=== PATIENT | male | born 1955 | race Caucasian/White ===

== ENCOUNTER → 2018-01-20 | Outpatient (CLI) | payer BC ==
[2015-12-02 08:04] VITALS: BP 107/65
[~2018-01-20] MED LIST: MOME13HF IH; OMEP20TA63 PO; PRAV20TA2 PO
--- NOTE | 2018-01-20 09:41 | CARD ---
MR#: [id number] Date of Study: 01/20/2018 Ordering Physician: ALEJANDRA CAMARILLO, Referring Physician: ALEJANDRA CAMARILLO Tech: Sarah Beth Tierney RDCS APPROVED REPORT EXAM: Two-dimensional and M-mode echocardiogram with Doppler and color Doppler. Other Information Quality : Fair INDICATION Atrial Fibrillation Chest Pain RISK FACTORS Obesity 2D DIMENSIONS RVDd3.3 (2.9-3.5cm)Left Atrium(2D)3.7 (1.6-4.0cm) IVSd1.2 (0.7-1.1cm)Aortic Root(2D)3.7 (2.0-3.7cm) LVDd5.6 (3.9-5.9cm)LVOT Diameter2.2 (1.8-2.4cm) PWd1.2 (0.7-1.1cm)LVDs4.5 (2.5-4.0cm) FS (%) 27.0 %SV61.9 ml LVEF(%)55.0 (>50%) Aortic Valve AoV Peak Tomas.146.4cm/sAoV VTI25.5cm AO Peak GR.8.6mmHgLVOT Peak Tomas.108.2cm/s AO Mean GR.4mmHgAVA (VMAX)2.87cm2 MEHUL (VTI)3.10cm2 Mitral Valve MV E Sqmhvwjr60.6cm/sMV DECEL VHVL105jj MV A Rjkwmhhy89.5cm/sE/A Ratio0.9 Tricuspid Valve TR P. Nidlbude075ja/sRAP TLTMAVGC2rkDh TR Peak Gr.64lxDzFSBQ25qkBc Pulmonary Vein S1 Qjvsxeqv38.9cm/sD2 Bcpuwtjf43.6cm/s LEFT VENTRICLE The left ventricle is normal size. There is mild concentric left ventricular hypertrophy. The left ve ntricular systolic function is normal. The Ejection Fraction is 55-60%. There is normal LV segmental wall motion. Transmitral Doppler flow pattern is Grade I-abnormal relaxation pattern. RIGHT VENTRICLE The right ventricle is normal size. The right ventricular systolic function is normal. ATRIA The left atrium size is normal. The right atrium size is normal. The interatrial septum is intact wit h no evidence for an atrial septal defect or patent foramen ovale as noted on 2-D or Doppler imaging. AORTIC VALVE The aortic valve is not well visualized. Doppler and Color Flow revealed no significant aortic regurg itation. There is no significant aortic valvular stenosis. MITRAL VALVE The mitral valve is normal in structure and function. There is no evidence of mitral valve prolapse. There is no mitral valve stenosis. Doppler and Color Flow revealed no mitral valve regurgitation note d. TRICUSPID VALVE The tricuspid valve is normal in structure and function. Doppler and Color Flow revealed trace tricus pid regurgitation. There is mild pulmonary hypertension. The PA pressure was estimated at 35 mmHg. Th ere is no tricuspid valve stenosis. PULMONIC VALVE The pulmonic valve is not well visualized. Doppler and Color Flow revealed no pulmonic valvular regur gitation. There is no pulmonic valvular stenosis. GREAT VESSELS The aortic root is normal in size. The ascending aorta is normal in size. The IVC is normal in size a nd collapses >50% with inspiration. PERICARDIAL EFFUSION There is no evidence of significant pericardial effusion. Critical Notification Critical Value: No <Conclusion> The left ventricular systolic function is normal. The Ejection Fraction is 55-60%. There is normal LV segmental wall motion. Trace tricuspid regurgitation. There is mild pulmonary hypertension. The PA pressure was estimated at 35 mmHg. There is no evidence of significant pericardial effusion. Signed by : Alejandra Camarillo, Electronically Approved : 01/20/2018 09:40:43
== END | disposition home or self-care (01) ==
LOC: ECHO 07:12
PROVIDERS: ATTEND Internal Medicine Cardiovascular Disease
DX: I27.20 Pulmonary hypertension, unspecified (principal); E78.00 Pure hypercholesterolemia, unspecified; K21.9 Gastro-esophageal reflux disease without esophagitis; E66.9 Obesity, unspecified
CPT/HCPCS: 93306

== ENCOUNTER 2018-01-31 10:11 | Outpatient (CLI) | payer BC ==
[~2018-01-31] VITALS: Ht 182.9 cm; Wt 151.5 kg
[2018-01-31] VITALS (10 sets, daily range): BP systolic 114–136; BP diastolic 57–76
[2018-01-31 10:34] LABS: HEMATOCRIT 42.2 % (39.0-53.0); HEMOGLOBIN 14.7 g/dL (13.0-17.5); RED BLOOD COUNT 4.78 x10^6/uL (4.30-5.70); RED CELL DISTRIBUTION WIDTH 13.5 % (11.5-14.5)
[2018-01-31 10:44] LABS: PROTHROMBIN TIME PATIENT 12.2 SEC (11.7-14.0)
[2018-01-31] MEDS ORDERED: ASPI-612 PO (11:05)
[2018-01-31] MEDS ORDERED: ATOR40TA59 PO (11:05)
[2018-01-31] MEDS ORDERED: DILT120C2 PO (11:05)
[2018-01-31] MEDS ORDERED: APIX5TAB PO (11:05)
[2018-01-31 11:13] LABS: CALCIUM 9.4 mg/dL (8.5-10.1); CREATININE 1.1 mg/dL (0.7-1.3); GFR 68.1; POTASSIUM 4.2 mmol/L (3.5-5.1)
[2018-01-31] MEDS ORDERED: IOHEXOL 300 MG/ML 100ML VIAL. ONE (11:33)
[2018-01-31] MEDS ORDERED: LIDOCAINE 1% PF 30 ML VIAL. ONE (11:33)
[2018-01-31] MEDS ORDERED: NITROGLYCERIN 200 MCG/2 ML SYRINGE FOR CATH/VASC LAB. ONE (12:13)
[2018-01-31] MEDS ORDERED: MIDAZOLAM HCL/PF 2 MG/2 ML VIAL. ONE (12:13)
[2018-01-31] MEDS ORDERED: HEPARIN for IV BOLUS 10,000 UNIT/10 ML VIAL. ONE (12:13)
[2018-01-31] MEDS ORDERED: VERAPAMIL 5 MG/2 ML VIAL. ONE (12:13)
[2018-01-31] MEDS ORDERED: fentaNYL PF VIAL 100 MCG/2 ML VIAL ONE (12:13)
[2018-01-31] MEDS ORDERED: LIDOCAINE 1% PF 30 ML VIAL. INJ ONE (12:30)
[2018-01-31] MEDS ORDERED: VERAPAMIL 5 MG/2 ML VIAL. IART ONE (12:30)
[2018-01-31] MEDS ORDERED: fentaNYL PF VIAL 100 MCG/2 ML VIAL IV ONE (12:30)
[2018-01-31] MEDS ORDERED: HEPARIN for IV BOLUS 10,000 UNIT/10 ML VIAL. IART ONE (12:30)
[2018-01-31] MEDS ORDERED: MIDAZOLAM HCL/PF 2 MG/2 ML VIAL. IV ONE (12:30)
[2018-01-31] MEDS ORDERED: IOHEXOL 300 MG/ML 100ML VIAL. IART ONE (12:30)
[2018-01-31] MEDS ORDERED: NITROGLYCERIN 200 MCG/2 ML SYRINGE FOR CATH/VASC LAB. IART ONE (12:30)
[2018-01-31] MEDS ORDERED: IV 1/2 NORMAL SALINE 1,000 ML IV SCH (12:37)
--- NOTE | 2018-01-31 12:37 | PDOC ---
MODERATE SEDATION ASSESSMENT RISKS/ALTERNATIVES Risks/Alternatives Risks and alternatives of this type of sedation and procedure discussed with: RISK/ALTERNATIVES: Patient H & P ON CHART H & P H & P on chart and reviewed for co-morbid conditions and appropriate labs. H&P ON CHART: Yes STATUS PREG STATUS ASSESSED: N/A MEDS/ALLERGIES REVIEWED Meds/Allergies Reviewed Medications and Allergies including time and route of recently administered narcotics and sedatives. MEDS/ALLERGIES REVIEWED: Yes ASA RATING ASA RATING: II AIRWAY ASSESSMENT Airway Assessment Airway patency, oral function limitations, presence of caps, crowns, dentures, partials, and ability to extend neck assessed. AIRWAY ASSESSMENT: Yes MALLAMPATI SCORE MALLAMPATI SCORE: II PRE-SEDATION ASSESSMENT PRE-SEDATION ASSESSMENT: Yes ALEJANDRA CAMARILLO MD Jan 31, 2018 12:37
[2018-01-31] MEDS ORDERED: CONTRAST GIVEN. MC PRN (12:45)
[2018-01-31] MEDS ORDERED: NITROGLYCERIN SUBLINGUAL 0.4 MG BOTTLE OF 25. SL PRN (12:45)
--- NOTE | 2018-01-31 12:54 | CARD ---
MR#: [id number] Date of Study: 01/31/2018 Ordering Physician: ALEJANDRA GARRETT Referring Physician: ALEJANDRA GARRETT Tech: RT Khloe (R) APPROVED REPORT Technologist: RT Khloe (R) Nurse: Monique Cunha R.N. Procedure(s) performed: Left heart catheterization, selective coronary angiography and left ventricul ography via right transradial approach Moderate Sedation: 16 minutes INDICATION The indication(s) include : Chest pain, dyspnea on exertion and positive stress test. PROCEDURE NARRATIVE After explaining the risks, benefits and alternative options, informed consent was obtained from brandi ent. Patient was brought to the cardiac [facility] and right wrist was prepped and draped in the usual fashion after confirming a positive modified Ezra's test. Arterial access was obtained in the righ t radial artery and a 6 Beninese sheath was inserted. 6 Beninese Angel catheter was used to perform elida ective angiography of the left and right coronary arteries. 6 Beninese pigtail catheter was used to pe rform left ventriculography. Patient tolerated the procedure well. Hemostasis was achieved using TR band. There were no immediate complications. The following findings were noted. FINDINGS 1. Hemodynamics: Left ventricular end-diastolic pressure of 6 mmHg. No pullback gradient across the aortic valve. 2. Left ventriculography: Normal left ventricle systolic function with ejection fraction estimated at 60%. No significant mitral regurgitation seen. 3. Coronary angiography: a. The left main coronary artery arose from the left sinus of Valsalva, gave rise to the left anteri or descending and left circumflex arteries and did not show any significant stenosis. b. The left anterior descending artery did not show any significant stenosis. c. The left circumflex artery did not show any significant stenosis. d. The right coronary artery was a large and dominant vessel arising from the right sinus of Valsalv a that did not show any significant stenosis. Conclusion 1. No significant coronary artery disease 2. Normal left ventricle systolic function with ejection fraction estimated at 60%. Signed by : Alejandra Garrett, Electronically Approved : 01/31/2018 12:53:52
== END 2018-01-31 15:33 | disposition home or self-care (01) ==
LOC: CCL 10:11
PROVIDERS: ATTEND Internal Medicine Cardiovascular Disease
DX: R94.39 Abnormal result of other cardiovascular function study (principal); Z79.899 Other long term (current) drug therapy; Z79.01 Long term (current) use of anticoagulants
CPT/HCPCS: 36415; 80048; 85027; 85610; 93458; 99152; C1769; C1892; J1644; J2250; J3010; J3490; Q9967; 99153

== ENCOUNTER → 2020-10-25 | Outpatient (CLI) | payer BC ==
[2018-01-31 15:15] VITALS: BP 128/66
[~2020-10-25] MED LIST changes: +APIX5TAB PO; +ASPI-886 PO; +ATOR40TA59 PO; +DILT120C2 PO
--- NOTE | 2020-10-25 12:09 | CARD ---
MR#: [id number] Date of Study: 10/25/2020 Ordering Physician: ALEJANDRA GARRETT, Referring Physician: ALEJANDRA GARRETT, Tech: APPROVED REPORT PROCEDURE: Successful implantation of Medtronic reveal Linq loop recorder INDICATIONS: Stroke of uncertain etiology r/o atrial fibrillation PROCEDURE DETAILS: An informed consent was obtained from patient. Patient was brought to the procedure suite and her le ft chest and shoulder were prepped and draped in the usual fashion. 20 mL of 2% lidocaine was infilt rated into the skin and subcutaneous tissues for local anesthesia. An incision was made in the left third intercostal space 1 inch from midsternal line and using the introducer and the bladder provided with the kit, a Medtronic reveal Linq loop recorder serial number [id number] was inserted in the weber bcutaneous tissue. Hemostasis was secured. Patient tolerated the procedure well. There were no imm ediate complications. At the end of procedure, the device showed sensing amplitude of 0.27 mV. CONCLUSION: Successful implantation of Medtronic reveal Linq loop recorder for stroke of uncertain etiology to ru le out any significant arrhythmias. Signed by : Alejandra Garrett, Electronically Approved : 10/25/2020 12:08:48
== END | disposition home or self-care (01) ==
LOC: LINQ 11:38
PROVIDERS: ATTEND Internal Medicine Cardiovascular Disease
DX: I63.89 Other cerebral infarction (principal); Z95.818 Presence of other cardiac implants and grafts; I48.91 Unspecified atrial fibrillation; E78.00 Pure hypercholesterolemia, unspecified; K21.9 Gastro-esophageal reflux disease without esophagitis; Z79.899 Other long term (current) drug therapy; Z98.890 Other specified postprocedural states; Z79.82 Long term (current) use of aspirin
CPT/HCPCS: 33285; C1764

== ENCOUNTER → 2021-03-09 | Outpatient (CLI) | payer BC ==
[2018-01-31 15:15] VITALS: BP 128/66
[~2021-03-09] MED LIST changes: +CONTRAST GIVEN. MC PRN; +IOHEXOL 240 MG/ML 50ML VIAL. PO ONE; +IOHEXOL 300 MG/ML 100ML VIAL. IV ONE
--- NOTE | 2021-03-09 11:20 | RAD ---
PQRS Compliance Statement: One or more of the following individualized dose reduction techniques were utilized for this examinat ion: 1. Automated exposure control 2. Adjustment of the mA and/or kV according to patient size 3. Use of iterative reconstruction technique CT ABDOMEN+PELVIS W Clinical Indication: Reason: HEMATURIA / Comparison: None. Technique: Helical CT imaging of the abdomen and pelvis is performed after 75 cc of Omnipaque 300 IV contrast. Oral contrast also administered. Findings: The right lateral abdomen is outside of the bstqj-aq-lxnc. This also creates artifact. There is a 4 mm probable nodule in the right lung identified on the first image. There is a 3 mm nodu le more inferiorly in the right lung, image 5. There is a 4 mm nodule in the posterior right lower lo be, image 19. There is a 4 mm nodule in the posterior left lower lobe, image 21. There is coronary ar jose disease. The cardiac size is normal. There is cholelithiasis. The liver, spleen, pancreas, adrenal glands, and abdominal aorta are normal. The left kidney is normal. There is a 2 mm nonobstructing right upper pole renal calculus. There is r ight pelviectasis and ill-definition of the renal pelvis with surrounding induration. There is a 1.5 cm calculus in the right renal pelvis near the ureteropelvic junction. There is no caliectasis to sug gest obstruction. There is no ureteral calculus. The stomach is unremarkable. There is no small bowel obstruction. The appendix is not seen, per repor t is surgically absent. There is mild sigmoid and descending colon diverticulosis. No colon wall thic kening is seen. There are several subcentimeter retroperitoneal lymph nodes. No abdominal free fluid. The urinary bladder is mostly decompressed, otherwise normal. The prostate size is normal. No pelvic free fluid. There is a tiny fat-containing umbilical hernia. 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 Grade 1 anterolisthesis of L5 on S1. There is dege nerative spondylosis of the thoracolumbar spine. IMPRESSION: 1. There is a 1.5 cm calculus in the right renal pelvis. There is pelviectasis and inflammation surr ounding the right renal pelvis suggesting pyelitis. There is no caliectasis to suggest hydronephrosis . 2. Cholelithiasis. 3. Mild distal colon diverticulosis. 4. There are a few sub-6 mm noncalcified pulmonary nodules in the lung bases. Consider CT chest foll ow-up in 12 months if patient has risk factors for lung malignancy, otherwise no follow-up is require d per Fleischner Society guidelines. Electronically signed by: Suman Penny MD (03/09/2021 11:17 AM) [facility]
== END ==
LOC: CT 09:17
PROVIDERS: ATTEND Family Medicine
DX: N20.0 Calculus of kidney (principal); K57.30 Diverticulosis of large intestine without perforation or abscess without bleeding; K80.20 Calculus of gallbladder without cholecystitis without obstruction; R31.9 Hematuria, unspecified; K42.9 Umbilical hernia without obstruction or gangrene; R91.8 Other nonspecific abnormal finding of lung field; I25.10 Atherosclerotic heart disease of native coronary artery without angina pectoris; M47.815 Spondylosis without myelopathy or radiculopathy, thoracolumbar region; M43.17 Spondylolisthesis, lumbosacral region
CPT/HCPCS: 74177; Q9966; Q9967